=== PATIENT | female | born 1970 | race Caucasian/White ===

== ENCOUNTER 2018-11-18 23:01 | Observation (INO) | payer OTHER, SELFPAY ==
--- NOTE | 2018-11-18 23:38 | RAD ---
PORTABLE CHEST: History: Chest pain FINDINGS: Lungs appear clear of infiltrate. No evidence of vascular congestion. Heart size is normal. IMPRESSION: No acute process. POS: [facility]
[2018-11-18 23:50] LABS: #Basophils 0.1 thou/uL (0.0-0.2); #Eosinphils 0.2 thou/uL (0.0-0.7); #Lymphocytes 3.9 thou/uL (1.20-3.40); #Monocytes 0.6 thou/uL (0.11-0.59); #Neutrophils 4.1 thou/uL (1.40-6.50); %Eosinophils 2.4 % (0.0-10.0); %Lymphocytes 43.9 % (21.0-51.0); %Neutrophils 45.7 % (42.0-75.0); Hemoglobin 13.7 g/dL (12.0-16.0); Mean Corpuscular HGB CONC 32.2 g/dL (32.0-36.0); Mean Corpuscular Hemoglobin 30.9 pg (27.0-31.0); Mean Corpuscular Volume 96.1 fL (78.0-98.0); Mean Platelet Volume 7.9 fL (7.4-10.4); Platelet Count 340 thou/uL (130-400); RBC Distribution Width 11.5 % (11.5-14.5); Red Blood Cell (RBC) Count 4.43 mill/uL (4.20-5.40); White Blood Cell (WBC) Count 8.9 thou/uL (4.8-10.8)
[2018-11-19] MEDS ORDERED: Ondansetron PF 4 MG/2 ML Vial ONE (00:03)
[2018-11-19] MEDS ORDERED: Lorazepam 2 MG/ML VIAL ONE (00:03)
[2018-11-19 00:12] LABS: ALT (SGPT) 16 U/L (8-55); AST (SGOT) 13 U/L (5-34); Albumin 4.2 g/dL (3.5-5.0); Alkaline Phosphatase 79 U/L (40-150); Anion Gap 15 mmol/L (10-20); BUN (Urea Nitrogen) 13 mg/dL (7.0-18.7); Bilirubin, Total 0.5 mg/dL (0.2-1.2); Calc. Creatinine Clearance 0 mL/min (70-130); Calcium 10.1 mg/dL (7.8-10.44); Carbon Dioxide 26 mmol/L (22-29); Chloride 102 mmol/L (98-107); Estimated GFR-MDRD 83; Globulin 3.1 g/dL (2.4-3.5); Glucose 190 mg/dL (70-105); Lipase 32 U/L (8-78); Potassium 3.6 mmol/L (3.5-5.1); Protein, Total 7.3 g/dL (6.0-8.3); Sodium 139 mmol/L (136-145)
[2018-11-19 00:29] LABS: Free T4 (Free Thyroxine) 1.07 ng/dL (0.70-1.48); Thyroid Stimulating Hormone 1.2413 uIU/mL (0.35-4.94)
--- NOTE | 2018-11-19 03:41 | PDOC.FPRHP ---
- History of Present Illness Chief Complaint: palpitations History of Present Illness: 48 yo F presents for palpitations. First time episode two evenings ago when sitting in chair. Described as heart pounding with anxiety, lasted for 30 minutes. Walked around and resolved. Second episode was 10pm last night when she was sitting in chair. This time palpitations were accompanied by sharp, midsternal chest pain that radiated up left neck. Nothing makes better/worse. Accompanied by SOB and nausea, but denies dipahoresis, positional change triggers. No prior cardiac history. Has hx of hypothyroidism diagnosed 3 weeks ago, started on synthroid. Also recently endorses some reflux in which she takes OTC meds that has not helped. Recent URI a few weeks ago. In ED she was tachycardic in 120s, received 2L NS, ativan, with improved tachycardia in 110s but still not resolved. At time of evaluation chest pain had resolved but tachycardia still present. - Allergies/Adverse Reactions Allergies Allergy/AdvReac Type Severity Reaction Status Date / Time morphine Allergy Verified 11/19/18 04:32 clarithromycin [From Biaxin] AdvReac Emesis Verified 11/19/18 05:01 - Home Medications Medication Instructions Recorded Confirmed Type Thyroid [[place] Thyroid] 30 mg PO DAILY 11/19/18 11/19/18 History - History PMHx: hypothyroidism PSHx: Csx x4, right breast lumpectomy, cholecystectomy, hernia repair FHx: no cardiac family hx Social: denies t/e/d - Review of Systems General: denies: fever/chills, weight/appetite/sleep changes Eyes: denies: eye pain, vision changes ENT: denies: nasal congestion, rhinorrhea Respiratory: denies: cough, congestion Cardiovascular: reports: chest pain, palpitation. denies: edema, paroxysmal nocturnal dyspnea Gastrointestinal: reports: nausea. denies: vomiting, diarrhea, constipation, abdominal pain, GI bleeding Genitourinary: denies: incontinence, dysuria Skin: denies: rashes, lesions, jaundice Musculoskeletal: denies: pain, tenderness, stiffness Neurological: denies: numbness, syncope, seizure, weakness Psychological: reports: anxiety. denies: depression - Vital signs BP: [141/103] HR: [112] RR: [20] Tmax: [98] Pox: [99]% on [RA] Wt: [90kg] - Physical Exam Constitutional: NAD, awake, alert and oriented, well developed HEENT: normocephalic and atraumatic, PERRLA, EOMI, grossly normal vision Neck: supple, FROM, trachea midline Chest: no-tender to palpation, no lesions Heart: normal S1/S2, no murmurs/rubs/gallops -Heart: tachycardic Lungs: CTAB, no respiratory distress, good air movement Abdomen: soft, non-tender Musculoskeletal: normal structure, normal tone, ROM grossly normal Neurological: no focal deficit, CN II-XII intact Skin: no rash/lesions, good turgor Heme/Lymphatic: no unusual bruising or bleeding, no purpura Psychiatric: normal mood and affect, good judgment and insight FMR H&P: Results - Labs Result Diagrams: 11/18/18 23:35 11/18/18 23:35 Lab results: WBC 8.9 thou/uL (4.8-10.8) 11/18/18 23:35 Hgb 13.7 g/dL (12.0-16.0) 11/18/18 23:35 Hct 42.6 % (36.0-47.0) 11/18/18 23:35 MCV 96.1 fL (78.0-98.0) 11/18/18 23:35 Plt Count 340 thou/uL (130-400) 11/18/18 23:35 Neutrophils % 45.7 % (42.0-75.0) 11/18/18 23:35 Sodium 139 mmol/L (136-145) 11/18/18 23:35 Potassium 3.6 mmol/L (3.5-5.1) 11/18/18 23:35 Chloride 102 mmol/L (98-107) 11/18/18 23:35 Carbon Dioxide 26 mmol/L (22-29) 11/18/18 23:35 BUN 13 mg/dL (7.0-18.7) 11/18/18 23:35 Creatinine 0.74 mg/dL (0.6-1.1) 11/18/18 23:35 Glucose 190 mg/dL (70-105) H 11/18/18 23:35 Calcium 10.1 mg/dL (7.8-10.44) 02/25/19 23:35 Total Bilirubin 0.5 mg/dL (0.2-1.2) 11/18/18 23:35 AST 13 U/L (5-34) 11/18/18 23:35 ALT 16 U/L (8-55) 11/18/18 23:35 Alkaline Phosphatase 79 U/L (40-150) 11/18/18 23:35 Serum Total Protein 7.3 g/dL (6.0-8.3) 11/18/18 23:35 Albumin 4.2 g/dL (3.5-5.0) 11/18/18 23:35 Lipase 32 U/L (8-78) 11/18/18 23:35 - EKG Interpretation EKG: sinus tachycardia - Radiology Interpretation Chest x-ray Status: image reviewed by me, report reviewed by me Additional comment: no acute c/p process FMR H&P: A/P - Problem List (1) Sinus tachycardia Current Visit: Yes Status: Acute Code(s): R00.0 - TACHYCARDIA, UNSPECIFIED (2) Hypothyroid Current Visit: Yes Status: Acute Code(s): E03.9 - HYPOTHYROIDISM, UNSPECIFIED (3) Chest pain Current Visit: Yes Status: Acute Code(s): R07.9 - CHEST PAIN, UNSPECIFIED - Plan Sinus tachycardia -ddx: anxiety vs. pheochromocytoma vs. myocarditis vs. thyroid disorder -EKG: sinus tachycardia, rate in 110s -TSH/ft4 wnl, Ddimer neg -trops neg x1, however in myocarditis would not have elevation -CKMB pending -ibuprofen for pain -TTE to further assess -can consider NST, will leave NPO with fluids in case -check FLP, A1c to risk stratify -admit to tele to monitor -if unimproved consider cards consult Atypical chest pain -see above Hypothyroidism -hold home meds while NPO dvt ppx: lovenox gi ppx: pantoprazole Will discuss w/ Dr. Alcazar FMR H&P: Upper Level - Pertinent history 48 y/o F with a hx/o hypothyroidism presenting for heart palpitations. Started last night while watching TV and felt like her heart was racing. Decided to wait another day and when a similar episode occurred the next night again, she decided to present to the ED. Associated chest pain that radiated into R neck starting during the 10:00pm news tonight. No associated SOB, nausea, dizziness, fever, chills, vision changes, diarrhea, diaphoresis, but she does describe a sensation of generalized weakness. States she was started on Levothyroxine 30mcg daily 4wks ago by pcp and skipped yesterdays dose. Did have a URI she described as a cold 2w ago. Has had 4 c/s and gallbladder surgery in the past. In ED, she states chest pain has resolved with IVF, Ativan, and Zofran, but still feels her heart beating rapidly. - Pertinent findings PHYSICAL EXAM: GEN: NAD, pleasant CARDIO: tachycardic, regular, no MRG LUNGS: lungs CTAB, no wheezes, ronchi, non-labored breathing MSK: MAEW, no edema, pulses present and strong Abdomen: obese, nontender. SKIN: no rashes . - Plan Date/Time: 11/19/18 0341 I, Arik Kennedy, have evaluated this patient and agree with findings/plan as outlined by business intern resident. Pertinent changes/additions are listed here. 1. Chest pain - resolved. Admit and continue to monitor. Possibly related to tachycardia vs GI vs MSK. Trops negative x1 will trend. EKG shows sinus tachycardia. Concern from ED of myositis and will order inflammatory markers. Consider stress test. ASA given in ED. 2. Sinus Tachycardia - Did receive 2L IVF/Ativan in ED with mild improvement 126 -->112. Unknown cause, but did see P waves on EKG throughout with regular rhythm. No evidence of infection. Will order ECHO. D-dimer negative. Consider cardiology consult and rate control if no improvement or other cause identified. Monitor on telemetry. 3. Hypothyroidism: TSH/FT4 WNL. Would consider possibility supplemental levothyroxine could cause the tachycardia. Addendum - Attending - Attending Attestation Date/Time: 11/19/18 1051 I personally evaluated the patient and discussed the management with Dr. Hernández. H &P repeated by me. I agree with the History, Examination, Assessment and Plan documented above with any addition or exceptions noted below. 48 y/o WF with PMH of hypothyroidism, obesity and family hx of CAD (3vCABG in father at age 60) presents with palpitations and crushing substernal chest pain last pm. At this time symptoms have resolved. EKG showed poor R wave progression in anterior leads and sinus tachycardia. her school lunch monitor has shown sinus tachy since admission (100-110s). Heart: tachycardia, no m, g,r. Lungs: ctab Ext: no c/c/e CP R/O MA- with risk factors and history and poor R wave progression anteriorly , will order a stress test to r/o coronary disease. Sinus tachycardia- continue tele monitoring to ensure no arrhythmia. If none and stress negative will consider beta sadie. obesity-weight loss counseling hypothyroidism- TSH at goal.
[2018-11-19] MEDS ORDERED: Aspirin Chewable 81 MG TAB ONE (04:10)
[2018-11-19] MEDS ORDERED: Mag-Al 1200 mg/1200 mg/30 ML UDCUP ONE (04:17)
[2018-11-19] MEDS ORDERED: Lidocaine Viscous Sol 2% 15 ml UD Cup ONE (04:17)
[2018-11-19 04:48] LABS: Troponin I Less than 0.010 ng/mL (< 0.028)
[2018-11-19] MEDS ORDERED: Ketorolac Tromethamine 30 MG/ML VIAL IVP PRN (04:52)
[2018-11-19 05:02] LABS: CKMB 0.9 ng/mL (0-6.6)
[2018-11-19 05:15] VITALS: BMI 39.9
[2018-11-19] MEDS ORDERED: Ondansetron PF 4 MG/2 ML Vial IVP PRN (05:23)
[2018-11-19 05:51] LABS: Hemoglobin A1c 5.5 % (4.0-6.0)
[2018-11-19] MEDS: Lactated Ringer's 1,000 ML IV SCH ×2 (05:54→17:49)
[2018-11-19 08:24] LABS: Troponin I Less than 0.010 ng/mL (< 0.028)
[2018-11-19] MEDS: Enoxaparin Sodium 40 MG/0.4 ML SYRINGE SC SCH (08:27)
[2018-11-19] MEDS: Pantoprazole 40 MG VIAL IVP SCH (08:27)
[2018-11-19] MEDS ORDERED: Enoxaparin Sodium 30 MG/0.3 ML SYRINGE SC SCH (09:00)
[2018-11-19] MEDS ORDERED: Acetaminophen 500 MG TAB PO PRN (13:15)
--- NOTE | 2018-11-19 14:42 | NM ---
NUCLEAR MEDICINE CARDIAC PERFUSION EXAMINATION WITH EJECTION FRACTION: HISTORY: 48-year-old female with chest pain and tachycardia. TECHNIQUE: A stress-only nuclear medicine cardiac perfusion examination was performed using 29.9 mCi of techneti um-99m sestamibi given at the peak of exercise on a treadmill using a Hayden protocol. The patient ach ieved greater than 85% maximum predicted heart rate. FINDINGS: Tomographic images show no perfusion defects with stress. Gated images show normal wall motion with a n ejection fraction of greater than 70%. EDV: 73 mL LHR: 0.4 IMPRESSION: No perfusion defects seen with stress. POS: [facility]
[2018-11-20 05:40] LABS: #Basophils 0.1 thou/uL (0.0-0.2); #Eosinphils 0.2 thou/uL (0.0-0.7); #Monocytes 0.6 thou/uL (0.11-0.59); #Neutrophils 2.9 thou/uL (1.40-6.50); %Basophils 1.1 % (0.0-1.0); %Eosinophils 2.4 % (0.0-10.0); %Lymphocytes 44.1 % (21.0-51.0); %Monocytes 9.3 % (0.0-10.0); Hemoglobin 12.5 g/dL (12.0-16.0); Mean Corpuscular HGB CONC 33.1 g/dL (32.0-36.0); Mean Corpuscular Hemoglobin 32.1 pg (27.0-31.0); Mean Platelet Volume 7.9 fL (7.4-10.4); Platelet Count 272 thou/uL (130-400); RBC Distribution Width 11.4 % (11.5-14.5); White Blood Cell (WBC) Count 6.8 thou/uL (4.8-10.8)
[2018-11-20 06:09] LABS: Anion Gap 9 mmol/L (10-20); BUN (Urea Nitrogen) 9 mg/dL (7.0-18.7); Calc. Creatinine Clearance 164 mL/min (70-130); Calcium 9.4 mg/dL (7.8-10.44); Carbon Dioxide 28 mmol/L (22-29); Cardiac Risk 4.6 (Less than 4.5); Chloride 106 mmol/L (98-107); Cholesterol 203 mg/dl (< 200 Desired); Estimated GFR-MDRD Greater than 90; Glucose 93 mg/dL (70-105); HDL Cholesterol 44 mg/dL (>60 Neg Risk); LDL Cholesterol, Calculated 93 mg/dL; Sodium 139 mmol/L (136-145); Triglycerides 331 mg/dL (Less than 150)
--- NOTE | 2018-11-20 07:50 | CON ---
DATE OF CONSULTATION: HISTORY OF PRESENT ILLNESS: The patient is a 48-year-old woman, who presents for evaluation of chest discomfort and palpitations. The patient has no previous cardiac history. She recently started on thyroid medication and the patient started having palpitations. The patient had a severe episode of palpitations the date prior to admission and she felt right-sided chest discomfort. This lasted for several minutes and eventually resolved. The patient came to the emergency room for further evaluation. The patient denies having any further chest discomfort. PAST MEDICAL HISTORY: Hypothyroidism. PAST SURGICAL HISTORY: Cholecystectomy, hernia surgery, and lumpectomy. SOCIAL HISTORY: Nonsmoker. Does not use alcohol. ALLERGIES: BIAXIN AND MORPHINE. MEDICATION: [place] Thyroid. FAMILY HISTORY: Positive family history of father had coronary bypass surgery. REVIEW OF SYSTEMS: Ten point system otherwise unremarkable. No history of easy bruising or bleeding, bright red blood per rectum. PHYSICAL EXAMINATION: GENERAL: This is an obese woman, in no acute distress. VITAL SIGNS: Blood pressure is 152/82, heart rate is 120. HEART: Regular rate and rhythm. Normal S1, S2. Tachycardic. ABDOMEN: Distended. EXTREMITIES: Showed no edema. VASCULAR: Radial pulses are 2+. LABORATORY DATA: Sodium 139, potassium 3.6, chloride 102, bicarb 26, BUN 13, creatinine 0.74. Troponin is 0.01. TSH is 1.24. White blood cell count 8.9, hemoglobin 13.7, hematocrit 42.6, platelets are 340. Her D-dimer was less than 0.7. Her EKG revealed her to have sinus tachycardia with poor R-wave progression. Echocardiogram revealed normal left ventricular ejection fraction 55% to 60%. Her Cardiolite stress test revealed her to have normal left ventricular ejection fraction of 70% with no evidence of ischemia. IMPRESSION: 1. Inappropriate sinus tachycardia. 2. Chest pain atypical. 3. History of hypothyroidism. 4. Obesity. This patient presents with marked sinus tachycardia. She underwent an echocardiogram and Cardiolite stress test was unremarkable. The patient was recently placed on thyroid medication because a mildly low thyroid levels. We would discontinue this medication. We would start the patient on beta sadie therapy. We will follow this patient with you through her hospitalization. Job ID: [id number] [facility]
--- NOTE | 2018-11-20 08:25 | PDOC.FM ---
- Subjective Subjective: Patient seen at bedside this morning resting comfortably. Yesterday stress and echo were normal. No acute events over night. Patient notes improvement in chest pain. - Objective MAR Reviewed: Yes Vital Signs & Weight: Vital Signs (12 hours) Temp Pulse Resp BP Pulse Ox 11/20/18 07:53 97.9 F 103 H 16 117/66 93 L 11/20/18 04:17 97.9 F 105 H 20 117/65 93 L 11/19/18 23:40 97.9 F 92 21 H 136/87 97 Weight Weight 94.256 kg I&O: 11/19/18 11/20/18 11/21/18 06:59 06:59 06:59 Intake Total 3230 Balance 3230 Result Diagrams: 11/20/18 04:21 11/20/18 04:21 Phys Exam - Physical Examination Constitutional: NAD HEENT: moist MMs, sclera anicteric Neck: full ROM Respiratory: clear to auscultation bilateral Cardiovascular: no significant murmur Tachy Gastrointestinal: soft, non-tender, no distention Musculoskeletal: no edema Neurological: moves all 4 limbs Psychiatric: A&O x 3 Dx/Plan (1) Sinus tachycardia Code(s): R00.0 - TACHYCARDIA, UNSPECIFIED Status: Acute (2) Chest pain Code(s): R07.9 - CHEST PAIN, UNSPECIFIED Status: Resolved (3) Hypothyroid Code(s): E03.9 - HYPOTHYROIDISM, UNSPECIFIED Status: Chronic - Plan Plan: 1. Sinus tachycardia - stress and echo are normal - TSH is WNL, however low normal. Cardiology recommends dcing [place] thyroid. Would titrate TSH to 4-5 in outpatient setting if necessary - Started on metoprolol today 2. Hypothyroid - as above 3. chest pain, resolved. Dispo: patient doing well overall. She will get her 1st dose of beta sadie today, assuming HR normalizes would expect dc this afternoon. Addendum - Attending - Attending Attestation Date/Time: 11/20/18 1101 I personally evaluated the patient and discussed the management with Dr. Pelletier I agree with the History, Examination, Assessment and Plan documented above with any addition or exceptions noted below. Sinus tachycardia- stable for d/c home on beta sadie. Hypothryoidism- d/c [place] thyroid and f/u in a few months for repeat TSH
[2018-11-20] MEDS: Enoxaparin Sodium 40 MG/0.4 ML SYRINGE SC SCH (09:19)
[2018-11-20] MEDS: Pantoprazole 40 MG VIAL IVP SCH (09:21)
[2018-11-20 11:41] VITALS: BP 136/67; TEMP 98.4
--- NOTE | 2018-11-20 14:49 | DIS ---
DATE OF ADMISSION: 11/19/2018 DATE OF DISCHARGE: 11/20/2018 DISCHARGE ATTENDING: Ellen Mccray M.D. RESIDENT: Robe Pelletier DO. CONSULTS: Nilton Nava M.D., Cardiology PROCEDURES: 1. Chest x-ray on 11/18/2018. Findings, no acute process. 2. Echocardiogram on 11/19/2018. Findings, ejection fraction visually estimated to be 55% to 60%. Normal left atrium. Left ventricular size is normal. Structurally normal mitral valve, mild tricuspid regurgitation. 3. Nuclear stress test on 11/19/2018. Findings, no perfusion defect with stress, Gated images show normal wall motion with an ejection fraction greater than 70%. DISCHARGE MEDICATIONS: Metoprolol succinate 25 mg p.o. b.i.d. DISCONTINUED MEDICATIONS: [place] Thyroid 10 mg p.o. daily. ADMITTING DIAGNOSES: 1. Sinus tachycardia. 2. Chest pain. SECONDARY DIAGNOSIS: Hypothyroid. HOSPITAL SUMMARY: This is a 48-year-old female who presented to the emergency room with complaints of heart palpitations and chest pain radiating to the left shoulder. Upon admission, it was noted that the patient was in sinus tachycardia; however EKG was otherwise unremarkable. The patient was admitted to [facility]. At the time of admission, the only lab abnormality found was elevated triglycerides at 331 and elevated cholesterol of 203. TSH at the time of admission was 1.24, free T4 was 1.07, troponins were negative x3. For the entire time that the patient was monitored on telemetry, she remained in sinus tachycardia, there were no other rhythm abnormalities noted. The patient underwent a stress test and echo, which were both normal. Concrete Technician consulted and determined as likely related to the [place] Thyroid, although the patient's TSH was within normal limits, it was towards the lower end of normal. [place] Thyroid was discontinued and patient was started on metoprolol. Chest pain resolved shortly after admission. At the time of discharge, patient's heart rate was less than 100. The patient was instructed to follow up with PCP in 1 week in order to retitrate thyroid replacement while monitoring heart rate. DISCHARGE INSTRUCTIONS: Location: Home. Diet: Regular. Followup: With PCP, Dr. Thomas in 1 week. Cardiology, Dr. Nava in 1 week. Job ID: [id number]
== END 2018-11-20 12:04 | disposition home or self-care (01) ==
LOC: ERS 23:01 → 2SW 11-19 04:50
PROVIDERS: ADMIT Family Medicine; ATTEND Family Medicine
DX: R00.0 Tachycardia, unspecified (principal); R07.89 Other chest pain; E03.9 Hypothyroidism, unspecified; Z88.6 Allergy status to analgesic agent; Z88.8 Allergy status to other drugs, medicaments and biological substances; Z79.899 Other long term (current) drug therapy
CPT/HCPCS: 36415; 71045; 78452; 80048; 80053; 80061; 82553; 83036; 83690; 83735; 83880; 84439; 84443; 84484; 85025; 85379; 85652; 86140; 93005; 93017; 93306; 96361; 96372; 96374; 96375; 96376; A9500; C9113; G0378; J1650; J2060; J2405

== ENCOUNTER 2019-07-09 23:38 | Emergency (ER) | payer OTHER ==
[2019-07-10] MEDS ORDERED: Mag-Al 1200 mg/1200 mg/30 ML UDCUP ONE (00:12)
[2019-07-10] MEDS ORDERED: Lidocaine Viscous Sol 2% 15 ml UD Cup ONE (00:12)
[2019-07-10 00:52] LABS: Hemoglobin 13.6 g/dL (12.0-16.0); Mean Corpuscular HGB CONC 34.2 g/dL (32.0-36.0); Mean Corpuscular Volume 93.6 fL (78.0-98.0); Platelet Count 249 thou/uL (130-400); RBC Distribution Width 11.6 % (11.5-14.5); Red Blood Cell (RBC) Count 4.25 mill/uL (4.20-5.40); White Blood Cell (WBC) Count 8.4 thou/uL (4.8-10.8)
[2019-07-10 01:06] LABS: #Eosinphils 0.4 thou/uL (0.0-0.7); #Lymphocytes 3.6 thou/uL (1.20-3.40); #Monocytes 0.7 thou/uL (0.11-0.59); #Neutrophils 3.7 thou/uL (1.40-6.50); %Basophils 0.3 % (0.0-1.0); %Lymphocytes 42.3 % (21.0-51.0); %Monocytes 8.4 % (0.0-10.0)
[2019-07-10 02:35] LABS: ALT (SGPT) 15 U/L (8-55); AST (SGOT) 14 U/L (5-34); Alkaline Phosphatase 59 U/L (40-110); Anion Gap 11 mmol/L (10-20); BUN (Urea Nitrogen) 13 mg/dL (7.0-18.7); Bilirubin, Total 0.6 mg/dL (0.2-1.2); Calc. Creatinine Clearance 0 mL/min (70-130); Calcium 9.2 mg/dL (7.8-10.44); Carbon Dioxide 26 mmol/L (22-29); Chloride 105 mmol/L (98-107); Estimated GFR-MDRD 86; Globulin 2.7 g/dL (2.4-3.5); Glucose 89 mg/dL (70-105); Potassium 3.9 mmol/L (3.5-5.1); Protein, Total 6.7 g/dL (6.0-8.3); Sodium 138 mmol/L (136-145)
--- NOTE | 2019-07-10 07:38 | RAD ---
EXAM: Single view of the chest HISTORY: Chest pain COMPARISON: 11/18/2018 FINDINGS: Single view of the chest shows a normal sized cardiomediastinal silhouette. There is no santhosh dence of consolidation, mass, or pleural effusion. Degenerative changes are seen in the spine. IMPRESSION: No evidence of acute cardiopulmonary disease
== END 2019-07-10 03:05 | disposition home or self-care (01) ==
LOC: ERS 23:38
DX: R07.89 Other chest pain (principal); E03.9 Hypothyroidism, unspecified; Z79.899 Other long term (current) drug therapy
CPT/HCPCS: 36416; 71045; 80053; 84484; 85025

== ENCOUNTER 2021-08-02 13:23 | Outpatient (CLI) | payer BC | END 2021-08-02 13:24 | disposition home or self-care (01) | LOC: ULT 13:23 | PROVIDERS: ATTEND Family Medicine | DX: R07.9 Chest pain, unspecified (principal); I07.1 Rheumatic tricuspid insufficiency | CPT/HCPCS: 93306 ==

== ENCOUNTER 2022-04-26 08:22 | Outpatient (CLI) | payer BC | END 2022-04-26 08:23 | disposition home or self-care (01) | LOC: BICMAMMO 08:22 | PROVIDERS: ATTEND Family Medicine | DX: Z12.31 Encounter for screening mammogram for malignant neoplasm of breast (principal); Z80.3 Family history of malignant neoplasm of breast; Z91.89 Other specified personal risk factors, not elsewhere classified | CPT/HCPCS: 77063; 77067 ==